=== PATIENT | male | born 1985 | race Two or more races ===

== ENCOUNTER 2016-06-18 12:50 | Emergency (ER) | payer SELFPAY ==
[2016-06-18 12:55] VITALS: BP 126/74; PULSE 91; TEMP 98.7; BMI 27.8
[2016-06-18] MEDS ORDERED: NAPROXEN 500 MG TABLET (FP) PO ONE (15:08)
[2016-06-18] MEDS ORDERED: NAPROXEN 500 MG TABLET (FP) ONE (15:08)
--- NOTE | 2016-06-18 15:13 | PDOC ---
History of Present Illness - General Chief Complaint: Back Pain Stated Complaint: BACK PAIN Time Seen by Provider: 06/18/16 14:29 History Source: Patient Exam Limitations: No Limitations - History of Present Illness Initial Comments: 06/18/16 15:11 Chief complaint: Lower back pain since this morning History of present illness: Patient is a 31-year-old male with no significant medical history here today complaining of bilateral lower back pain since picking up a car seat this morning and feeling a pull across his back. Patient reports that pain is worse with certain movements sitting down getting up and turning his torso pain is a 6 out of 10. Patient denies any radiation of pain down the legs or any saddle anesthesia or incontinency. Patient has not taken anything for pain Occurred: reports: this morning Severity: reports: moderate Pain Location: reports: back (lower ) Method of Injury: Yes: other (bending over this morning to lift carriage) Modifying Factors: improves with: immobilization Past History - Past Medical History Allergies/Adverse Reactions: Allergies Allergy/AdvReac Type Severity Reaction Status Date / Time No Known Allergies Allergy Verified 06/18/16 12:55 Home Medications: Ambulatory Orders Cyclobenzaprine HCl [Flexeril 10 mg] 10 mg PO Q8H PRN #21 tablet 06/18/16 Naproxen [Naprosyn -] 500 mg PO Q12H PRN #14 tablet 06/18/16 Other medical history: PATIENT DENIES MEDICAL HX - Psycho/Social/Smoking Cessation Hx Anxiety: No Suicidal Ideation: No Smoking History: Never smoked Have you smoked in the past 12 months: No Hx Alcohol Use: Yes (OCCASIONALLY) Drug/Substance Use Hx: No Substance Use Type: None Review of Systems - Review of Systems Able to Perform ROS?: Yes Constitutional: No: Symptoms Reported HEENTM: No: Symptoms Reported Respiratory: No: Symptoms reported Cardiac (ROS): No: Symptoms Reported ABD/GI: No: Symptoms Reported : No: Symptoms Reported Musculoskeletal: Yes: Back Pain (lower back b/l ) Integumentary: No: Symptoms Reported Neurological: No: Symptoms reported *Physical Exam - Vital Signs Last Vital Signs Temp Pulse Resp BP Pulse Ox 98.7 F 91 H 16 126/74 97 06/18/16 12:52 06/18/16 12:52 06/18/16 12:52 06/18/16 12:52 06/18/16 12:52 - Physical Exam General Appearance: Yes: Appropriately Dressed Respiratory/Chest: positive: Lungs Clear, Normal Breath Sounds. negative: Chest Tender, Respiratory Distress Cardiovascular: positive: Regular Rhythm, Regular Rate, S1, S2 Vascular Pulses: Dorsalis-Pedis (R): 4+, Doralis-Pedis (L): 4+ Musculoskeletal: positive: Normal Inspection, Decreased Range of Motion (from waist ), Muscle Spasm (b/l paraspinal lumbar). negative: CVA Tenderness, CVA Tenderness (R), CVA Tenderness (L), Vertebral Tenderness Extremity: positive: Normal Capillary Refill, Normal Inspection, Normal Range of Motion Integumentary: positive: Normal Color Neurologic: positive: Alert, Normal Response, Motor Strength 5/5 (lower extremities), Responsive, Other ( negative SLR b/l ). negative: Respond to painful stimul, Numbness, Sensory Deficit Medical Decision Making - Medical Decision Making 06/18/16 15:11 06/18/16 15:12 Patient is a 31-year-old male with no significant medical history here today complaining of bilateral lower back pain since picking up a car seat this morning and feeling a pull across his back. Patient reports that pain is worse with certain movements sitting down getting up and turning his torso pain is a 6 out of 10. Patient denies any radiation of pain down the legs or any saddle anesthesia or incontinency. Patient has not taken anything for pain low back strain PLAN: naprosyn 500 mg po now than q 12 hr prn pain # 14 tabs flexeril 10 mg q8 hr prn muscle spasm # 21 ortho follow up *DC/Admit/Observation/Transfer Diagnosis at time of Disposition: Low back pain Qualifiers: Chronicity: acute Back pain laterality: unspecified Sciatica presence: without sciatica Qualified Code(s): M54.5 - Low back pain - Discharge Dispostion Disposition: HOME Condition at time of disposition: Stable - Referrals Referrals: Ray Paz MD [Staff Physician] - - Patient Instructions Additional Instructions: Low up with orthopedist within the next few days Return to emergency room if symptoms worsen or new symptoms develop any history of control of urine or bowel movement or worsening pain or numbness of groin or legs Avoid any strenuous activities or lifting until pain has resolved and when lifting in the future make sure you use proper lifting technique as demonstrated in exam room Patient voiced understanding of discharge instructions and all questions were answered
== END 2016-06-18 15:18 | disposition home or self-care (01) ==
LOC: JERFT 12:50
DX: M54.5 Low back pain (principal); X50.0XXA Overexertion from strenuous movement or load, initial encounter; X50.9XXA Other and unspecified overexertion or strenuous movements or postures, initial encounter; Y93.89 Activity, other specified; Y92.89 Other specified places as the place of occurrence of the external cause
CPT/HCPCS: 99281-25

== ENCOUNTER 2018-07-07 09:56 | Emergency (ER) | payer OTHER ==
[2018-07-07 10:06] VITALS: BP 110/61; PULSE 82; TEMP 98.1; BMI 28.8
[2018-07-07] MEDS ORDERED: KETOROLAC TROMETHAMINE 60 MG/2 ML VIAL IM ONE (10:38)
--- NOTE | 2018-07-07 10:38 | PDOC ---
History of Present Illness - General Chief Complaint: Pain, Acute Stated Complaint: SWOLLEN KNEE Time Seen by Provider: 07/07/18 10:31 History Source: Patient Exam Limitations: No Limitations (R knee pain X 2 days, no trauma) - History of Present Illness Lower Extremity Pain Location: right: knee Method of Injury: Yes: unknown (R knee pain X 2 days) Lower Ext. Injury Location - Specific Injury Location Knees: right no evidence of injury, right normal range of motion, right normal inspection, right deformity, right bone tenderness, right pain Extremity Pain Location - Extremity Pain Location Extremity Pain Locations: right: knee Past History - Past Medical History Allergies/Adverse Reactions: Allergies Allergy/AdvReac Type Severity Reaction Status Date / Time No Known Allergies Allergy Verified 07/07/18 10:06 Home Medications: Ambulatory Orders Naproxen 375 mg PO BID 7 Days #20 tablet 07/07/18 Cardiac Disorders: (MUR MUR, SX 17 Y) COPD: No - Suicide/Smoking/Psychosocial Hx Smoking History: Never smoked Have you smoked in the past 12 months: No Information on smoking cessation initiated: No Hx Alcohol Use: No Drug/Substance Use Hx: No Substance Use Type: None Review of Systems - Review of Systems Able to Perform ROS?: Yes Is the patient limited [place] proficient: No Constitutional: No: Chills, Fever Musculoskeletal: Yes: Joint Pain (R knee ). No: Gout, Joint Swelling, Muscle Weakness, Joint Stiffness *Physical Exam - Vital Signs Last Vital Signs Temp Pulse Resp BP Pulse Ox 98.1 F 82 16 110/61 99 07/07/18 10:03 07/07/18 10:03 07/07/18 10:03 07/07/18 10:03 07/07/18 10:03 - Physical Exam General Appearance: Yes: Nourished HEENT: positive: EOMI, BETINA Respiratory/Chest: positive: Lungs Clear, Normal Breath Sounds Cardiovascular: positive: Regular Rhythm, Regular Rate, S1, S2 Extremity: positive: Normal Capillary Refill, Normal Inspection, Normal Range of Motion, Other (R knee, FROM, no swelling, pain only with ambulation, distal pulse intact, + limping gait) Neurologic: positive: mail clerk bills II-XII NML intact, Fully Oriented, Alert Medical Decision Making - Medical Decision Making 33y/o M with R knee pain X 2 days, denies trauma, f/c exam with pain on ROM, no warmth or swelling limping gait 07/07/18 12:10 xray with chondrocalcinosis pt placed on knee immobolizer, nsaids and ortho f/u *DC/Admit/Observation/Transfer Diagnosis at time of Disposition: Knee pain, right Qualifiers: Chronicity: acute Qualified Code(s): M25.561 - Pain in right knee - Discharge Dispostion Disposition: HOME Condition at time of disposition: Stable Decision to Admit order: No - Prescriptions Prescriptions: Naproxen 375 mg PO BID 7 Days #20 tablet - Referrals Referrals: Epi Zee DO [Staff Physician] - - Patient Instructions Printed Discharge Instructions: DI for Knee Pain Additional Instructions: Your xray showed no fracture or dislocation There is evidence of irritation of the cartilage in the knee and this can cause pain. you will need to see an orthopedic for further evaluation nd possible MRI imaging Please take medication as prescribed Return to the Emergency Department if worsening symptoms occurs - Post Discharge Activity Forms/Work/School Notes: Back to Work
[2018-07-07] MEDS ORDERED: KETOROLAC TROMETHAMINE 60 MG/2 ML VIAL ONE (10:47)
== END 2018-07-07 12:25 | disposition home or self-care (01) ==
LOC: JERFT 09:56
PROC: 2W3QXYZ Immobilization of Right Lower Leg using Other Device (ICD-10-PCS; principal; 2018-07-07)
DX: M11.261 Other chondrocalcinosis, right knee (principal)
CPT/HCPCS: 29530; 73562-TC-RT-FY; 99281-25

== ENCOUNTER 2020-11-19 11:05 | Emergency (ER) | payer OTHER ==
[2020-11-19 11:13] VITALS: BP 114/72; PULSE 71; TEMP 98; BMI 29.7
[2020-11-19 12:12] LABS: BASO % 1.1 % (0-2.0); EOS % 2.5 % (0-4.5); HEMATOCRIT 46.1 % (35.4-49); LYMPH % 21.4 % (8-40); MCH 31.3 pg (25.7-33.7); MCHC 34.8 g/dl (32.0-35.9); MEAN CELL VOLUME 89.9 fl (80-96); MEAN PLT VOLUME 8.1 fl (7.5-11.1); MONO % 8.6 % (3.8-10.2); NEUT % 66.4 % (42.8-82.8); PLATELET COUNT 261 10^3/uL (134-434); RBC 5.13 M/mm3 (4.00-5.60); RDW 13.4 % (11.9-15.9); WHITE BLOOD COUNT 7.7 K/mm3 (4.0-10.0)
[2020-11-19 12:32] LABS: BLOOD UREA NITROGEN 12.1 mg/dL (7-18)
[2020-11-19 12:36] LABS: CREATININE 0.9 mg/dL (0.55-1.3)
[2020-11-19 12:37] LABS: BILIRUBIN,TOTAL 1.2 mg/dL (0.2-1)
[2020-11-19] MEDS ORDERED: KETOROLAC TROMETHAMINE 30 MG/1 ML VIAL IVPUSH ONE (14:16)
[2020-11-19] MEDS ORDERED: KETOROLAC TROMETHAMINE 30 MG/1 ML VIAL ONE (14:17)
== END 2020-11-19 15:32 | disposition home or self-care (01) ==
LOC: JER 11:05 → JERFT 11:05
PROC: 3E033GC Introduction of Other Therapeutic Substance into Peripheral Vein, Percutaneous Approach (ICD-10-PCS; principal; 2020-11-19)
DX: H60.91 Unspecified otitis externa, right ear (principal)
CPT/HCPCS: 36415; 70487-TC; 80053; 85025; 96374; 99285-25

== ENCOUNTER 2021-06-12 04:38 | Emergency (ER) | payer OTHER ==
[2021-06-12 04:47] VITALS: BP 117/80; PULSE 65; TEMP 97.7; BMI 29.9
[2021-06-12] MEDS ORDERED: DEXAMETHASONE SOD PHOSPHATE 10 MG/1 ML VIAL IM ONE (05:16)
[2021-06-12] MEDS ORDERED: DEXAMETHASONE SOD PHOSPHATE 10 MG/1 ML VIAL ONE (05:19)
[2021-06-12] MEDS ORDERED: KETOROLAC TROMETHAMINE 30 MG/1 ML VIAL IM ONE (06:22)
[2021-06-12] MEDS ORDERED: KETOROLAC TROMETHAMINE 30 MG/1 ML VIAL ONE (06:24)
[2021-06-12] MEDS ORDERED: ONDANSETRON 4 MG TABLET PO ONE (06:41)
[2021-06-12] MEDS ORDERED: ONDANSETRON *ODT* 4 MG TABLET ONE (06:43)
== END 2021-06-12 07:18 | disposition home or self-care (01) ==
LOC: JER 04:38
PROC: 3E023GC Introduction of Other Therapeutic Substance into Muscle, Percutaneous Approach (ICD-10-PCS; principal; 2021-06-12)
PROC: 3E0233Z Introduction of Anti-inflammatory into Muscle, Percutaneous Approach (ICD-10-PCS; 2021-06-12)
DX: M54.2 Cervicalgia (principal)
CPT/HCPCS: 70450-TC; 72125-TC; 99284-25; J1100